=== PATIENT | female | born 2000 | race Caucasian/White ===

== ENCOUNTER 2022-06-20 19:47 | Emergency (ER) | payer MEDICAID ==
[~2022-06-20] VITALS: Ht 162.6 cm; Wt 63.2 kg
[~2022-06-20 19:47] MED LIST: CEPHALEXIN250 M1 PO
[2022-06-20 19:55] VITALS: TEMP 97.9
[2022-06-20 20:30] LABS: BASO # 0.1 K/mm3 (0.0-0.2); BASO % 0.5 % (0.0-2.0); EOS # 0.2 K/mm3 (0.0-0.7); EOS % 1.6 % (0.0-4.0); GRAN # 7.3 K/mm3 (1.4-6.5); GRAN % 66.5 % (42.2-75.2); HEMOGLOBIN 12.3 g/dl (12.5-16.0); LYMPH # 2.1 K/mm3 (1.2-3.4); LYMPH % 19.3 % (20.0-51.0); MEAN CELL VOLUME 91 fl (80.0-100.0); MEAN CORPUSCULAR HEMOGLOBIN 31 pg (27-31); MEAN CORPUSCULAR HGB CONC 34 g/dl (33.0-37.0); MEAN PLATELET VOLUME 11.2 fl (7.4-10.4); MONO # 1.2 K/mm3 (0.1-0.6); MONO % 10.7 % (1.7-9.3); PLATELET COUNT 243 K/mm3 (130-400); RED BLOOD COUNT 4.01 M/mm3 (4.10-5.30); REDCELL DISTRIBUTION WIDTH-CV 13.3 % (11.5-14.5)
[2022-06-20 20:42] LABS: HEMATOCRIT 36.6 % (37.0-47.0)
[2022-06-20 20:44] LABS: COLLECTION METHOD CLEAN CATCH
[2022-06-20 20:55] LABS: MUCOUS Present (NOT PRESENT); URINE APPEARANCE Cloudy (CLEAR/HAZY); URINE BACTERIA None Seen /hpf (NONE SEEN); URINE COLOR Yellow (YELLOW); URINE RBC 0-2 /hpf (0-2)
[2022-06-20 20:56] LABS: URINE BLOOD Negative (NEGATIVE); URINE GLUCOSE Negative (NEGATIVE); URINE KETONE Negative (NEGATIVE); URINE NITRATE Negative (NEGATIVE); URINE PROTEIN(semi-quant) Negative (NEGATIVE)
[2022-06-20 21:05] LABS: ALBUMIN 3.1 gm/dL (3.5-5.0); BILIRUBIN,TOTAL 0.2 mg/dL (0.2-1.2); C-REACTIVE PROTEIN 4.12 mg/dL (0.00-0.50); CALCIUM 9.1 mg/dL (8.4-10.2); CREATININE, serum 0.56 mg/dL (0.57-1.11)
[2022-06-20 21:16] LABS: INR 0.9 (0.8-3.0); PROTHROMBIN TIME 10.1 SECONDS (9.7-12.8)
--- NOTE | 2022-06-20 22:16 | NUR ---
EFM tracing, approtprate for gestatinal age. Multiple periods of audible movements.
[2022-06-20 22:41] VITALS: BP 110/65; PULSE 86
[2022-06-20] MEDS ORDERED: MACROBID 1100 MG/CAP PO (22:47)
== END 2022-06-20 22:58 | disposition home or self-care (01) ==
LOC: COL.ER 19:47
PROVIDERS: Emergency Medicine
DX: O23.42 Unspecified infection of urinary tract in pregnancy, second trimester (principal); N39.0 Urinary tract infection, site not specified; O99.891 Other specified diseases and conditions complicating pregnancy; R42 Dizziness and giddiness; Z28.310 Unvaccinated for COVID-19; Z3A.23 23 weeks gestation of pregnancy
CPT/HCPCS: J2405; J2550; J7030

== ENCOUNTER 2023-06-19 14:41 | Emergency (ER) | payer MEDICAID ==
[~2023-06-19] VITALS: Ht 144.8 cm; Wt 50.0 kg
[~2023-06-19 14:41] MED LIST changes: +ADALAT CC30 MG PO; +IBU600 MG PO; +MACROBID 1100 MG/CAP PO; +PRENATAL TABLET PO; +PROCARDIA XL 6060 MG PO
[2023-06-19 14:46] VITALS: TEMP 98.1
[2023-06-19] MEDS ORDERED: Meclizine 25 MG TAB PO ONE (17:30)
[2023-06-19] MEDS ORDERED: NS 1,000 ML IV ONE (17:30)
[2023-06-19 17:56] LABS: COLLECTION METHOD CLEAN CATCH
[2023-06-19 18:13] LABS: ALBUMIN 4.4 gm/dL (3.5-5.0); BILIRUBIN,TOTAL 0.3 mg/dL (0.2-1.2); C-REACTIVE PROTEIN 0.34 mg/dL (0.00-0.50); CALCIUM 9.5 mg/dL (8.4-10.2); CREATININE, serum 0.81 mg/dL (0.57-1.11); POTASSIUM 4.4 mmol/L (3.5-4.5); TOTAL PROTEIN 7.6 gm/dL (6.2-8.1)
[2023-06-19 18:15] LABS: BASO # 0.1 K/mm3 (0.0-0.2); BASO % 0.8 % (0.0-2.0); EOS # 0.2 K/mm3 (0.0-0.7); EOS % 2.8 % (0.0-4.0); GRAN # 3.2 K/mm3 (1.4-6.5); GRAN % 45.3 % (42.2-75.2); HEMATOCRIT 41.5 % (37.0-47.0); HEMOGLOBIN 13.6 g/dl (12.5-16.0); LYMPH % 42.6 % (20.0-51.0); MEAN CELL VOLUME 85 fl (80.0-100.0); MEAN CORPUSCULAR HEMOGLOBIN 28 pg (27-31); MEAN CORPUSCULAR HGB CONC 33 g/dl (33.0-37.0); MEAN PLATELET VOLUME 11.4 fl (7.4-10.4); MONO # 0.6 K/mm3 (0.1-0.6); MONO % 8.2 % (1.7-9.3); PLATELET COUNT 245 K/mm3 (130-400); RED BLOOD COUNT 4.86 M/mm3 (4.10-5.30); REDCELL DISTRIBUTION WIDTH-CV 13.6 % (11.5-14.5)
[2023-06-19 18:21] LABS: URINE APPEARANCE Clear (CLEAR/HAZY); URINE BLOOD Negative (NEGATIVE); URINE COLOR Yellow (YELLOW); URINE GLUCOSE Negative (NEGATIVE); URINE KETONE TRACE (NEGATIVE); URINE NITRATE Negative (NEGATIVE); URINE PROTEIN(semi-quant) Negative (NEGATIVE); URINE UROBILINOGEN 0.2 E.U/dL (0.2-1.0)
[2023-06-19 18:33] LABS: TSH w REFLEX 1.143 uIU/mL (0.350-4.940)
[2023-06-19] MEDS ORDERED: diphenhydrAMINE 50 MG/ML 1 ML VIAL IV ONE (19:00)
[2023-06-19 19:04] LABS: SQUAMOUS EPITHELIAL 0-2 /hpf (0-10); URINE BACTERIA Rare /hpf (NONE SEEN); URINE RBC None Seen /hpf (0-2)
[2023-06-19] MEDS ORDERED: Ketorolac 30 MG/ML VIAL IV ONE (19:15)
[2023-06-19] MEDS ORDERED: Ondansetron 4 MG/2 ML VIAL IV ONE (19:15)
[2023-06-19 20:01] VITALS: BP 124/70; PULSE 64
== END 2023-06-19 23:49 | disposition home or self-care (01) ==
LOC: COL.ER 14:41
PROVIDERS: Nurse Practitioner
DX: R51.9 Headache, unspecified (principal); R42 Dizziness and giddiness; R11.0 Nausea
CPT/HCPCS: J1885; J2405; J7030